=== PATIENT | female | born 1955 | race American Indian/Alaskan Native ===

== ENCOUNTER 2017-04-07 13:11 | Outpatient (CLI) | payer MEDICARE ==
--- NOTE | 2017-04-09 08:33 | Vascular Lab Report ---
LEFT UPPER EXTREMITY VENOUS DUPLEX: REASON FOR EXAM: Pain of the left upper extremity COMMENTS ON THE LEFT: Deep venous thrombosis is noted in the internal jugular, axillary, subclavian veins.. The remaining veins visualized are freely compressible without evidence of internal echogenicity. Spontaneous and phasic flow is absent proximally. COMMENTS ON THE RIGHT: The subclavian and internal jugular veins are free of thrombus. IMPRESSION: Acute deep venous thrombosis in the left upper extremity
--- NOTE | 2017-04-15 12:02 | Cat Scan Report ---
CTA CHEST INDICATION: Pain in right forearm. Lung cancer. COMPARISON: 09/20/[address] FINDINGS: Chest CTA performed following intravenous administration of 100 cc of Omnipaque 350. Rotational MIP's also obtained. Left hemidiaphragm again moderately elevated, though with increased left lower lung/base consolidation with air bronchograms as on axial series 2, images 84-140. Slight increased left pleural fluid or thickening posteroinferiorly as on axial image 126, amongst others, as well. Left hilar/suprahilar/left paramediastinal mass now larger as approximately 6.3 x 2.7 cm as on axial image 90, series 2 and approximately 8 cm in craniocaudal extent, encasing blood vessels and the airways centrally as also invading/extending into the superior mediastinum as on axial images 30-75, series 2. Subtle soft tissue hypodensity may also extend along the proximal common carotid artery and prominent stranding/haziness along the left subclavian/subpectoral neurovascular bundle on axial images 15-60, amongst others. Left upper anterior chest subcutaneous stranding also now noted, axial images 10-70. Left pectoral muscles also asymmetrically prominent/mildly larger than the right. Mild cardiomediastinal shift to the right again noted as also pericardial fluid on the left with maximum thickness of 1.8 cm, image 127, series 2. Borderline pulmonary arterial hypertension. No aortic aneurysm, dissection or suspicious pulmonary arterial filling defects, to the extent assessed. Patent airway centrally. Normal thyroid. Mild right middle lobe atelectasis or scarring again noted. Slight nonspecific distal esophageal prominence/thickening. Few subcentimeter, indeterminate left hepatic hypodensities appear stable, axial images 188-230 measuring up to 7 mm. No focal aggressive osseous lesions. CONCLUSION: 1. Interval worsening with enlargement of left hilar/suprahilar/left paramediastinal mass with mediastinal invasion and encasement of the airways and blood vessels centrally, as detailed above. Increased left basilar atelectasis and/or small pleural fluid or thickening also now noted. Left upper chest wall soft tissue changes are also new with left subclavian vein thrombosis/occlusion not excluded. Please correlate. 2. Stable moderately elevated left hemidiaphragm with mild cardiomediastinal shift to the right. Small pericardial effusion also again seen. 3. Few other findings, as above. Please note that this exam is now available for interpretation. Thank you for the opportunity to participate in this patient's care.
== END 2017-04-07 13:12 | disposition home or self-care (01) ==
LOC: CT 13:11
PROVIDERS: ATTEND Internal Medicine Hematology & Oncology
DX: M79.631 Pain in right forearm (principal); R06.02 Shortness of breath; M79.89 Other specified soft tissue disorders
CPT/HCPCS: 36415; 71275; 82565; 84520; 93971; Q9967

== ENCOUNTER 2017-08-05 09:22 | Outpatient (CLI) | payer MEDICARE ==
[2017-08-05 10:35] LABS: Blood Urea Nitrogen 18 mg/dL (7-17)
--- NOTE | 2017-08-05 13:13 | Cat Scan Report ---
CT CHEST WITH CONTRAST: 08/05/17 09:22:00 CLINICAL: Malignant neoplasm of left upper lobe bronchus or lung. Comparison: 04/07/17 and 09/20/14 CT Chest and 10/03/14 CT PET TECHNIQUE: Volumetric acquisition and 1.25 mm scan reconstructions after the uneventful intravenous injection of 100cc Omnipaque 300. Consent was obtained prior to the administration of contrast. FINDINGS: Persistent elevation of the left hemidiaphragm to the level of the main pulmonary artery. Partial atelectasis of the left upper lobe and significant decreased size of previously described left hilar mass. Mass persists as thickened medial pleura at the level of the main pulmonary artery and measures approximately 3.9 x 1.4 x 4.7 cm. Decreased size of superior mediastinal mass. Vessels are no longer encased by mass. Normal heart, aorta and pulmonary vasculature. No new lung mass or nodule. No hilar or mediastinal lymphadenopathy. No pleural effusion. Normal thyroid, trachea and esophagus. No axillary or supraclavicular lymphadenopathy. The upper abdomen is remarkable for stable benign hepatic cysts. Normal adrenal glands. The bones and soft tissues are normal. IMPRESSION: Positive response to therapy with decreased size of left upper lobe hilar mass and superior mediastinal mass. No new disease.
--- NOTE | 2017-08-05 14:27 | Cat Scan Report ---
FINAL REPORT EXAM: CT ABDOMEN PELVIS W CON HISTORY: MALIGNANT NEOPLASM OF UPPER LOBE,LEFT BRONCHUS OR LUNG TECHNIQUE: CT of the abdomen and pelvis with IV contrast. Coronal and sagittal reconstructed imaging provided. PRIORS: CT chest August 05, 2017. FINDINGS: ABDOMEN: Left upper quadrant abdominal contents extend into the thorax. Findings may be related to a elevated left hemidiaphragm based on the prior CT chest. A diaphragmatic hernia is not entirely excluded. Partially imaged right lung is grossly unremarkable. Several subcentimeter low-attenuation lesions are present within the fatty liver. No obvious enhancement. Largest lesion measures 7.9 mm in the right liver on series 3:157. Pancreatic duct is dilated measuring 3.4 cm near the head. Distinct lesion is not evident. No abnormal enhancement. Gallbladder, spleen, and adrenals are unremarkable. Kidneys: Symmetrical cortical enhancement. Subcentimeter low-density lesions in both renal cortices are too small to accurately characterize but statistically probably represent cysts. No hydronephrosis. No suspicious osseous lesions. IVC is intact. Mild aortic atherosclerotic disease. No aneurysm. No dissection. No periaortic or retroperitoneal mass or adenopathy. Hltv-qk-dwuqjlbo stool is present throughout the colon. Sigmoid diverticulosis noted. No wall thickening or inflammatory changes. Appendix is normal. Terminal ilium is unremarkable. Small bowel loops are unremarkable. No obstructive pattern. No free air. No free fluid. PELVIS: Limited CT images of the uterus are unremarkable. Bladder is unremarkable. No wall thickening. No abnormal enhancing lesions. There is no pelvic mass or adenopathy. Inguinal regions are unremarkable. Bones: Ill-defined sclerotic lesion at the right aspect of the vertebral body and bilateral posterior elements of L3 is suspicious for metastatic disease. Compression fracture is not present. No other suspicious sclerotic lesions are evident IMPRESSION: Sclerotic lesion at the L3 vertebra. Findings are suspicious for metastatic disease. Further evaluation with bone scan may be helpful clinically indicated. Elevated left hemidiaphragm. Nonspecific low-density lesions in the fatty liver. Liver protocol as CT or MRI may be helpful if clinically indicated. Probable bilateral renal cysts.
--- NOTE | 2017-08-05 14:44 | Nuclear Medicine Report ---
NUCLEAR MEDICINE WHOLE-BODY BONE SCAN: 08/05/17 CLINICAL: Lung cancer restaging. COMPARISON: 09/20/14 TECHNIQUE: 25.0-millicuries technetium 99m MDP was injected intravenously and whole body scans were obtained at 3 hours. FINDINGS: Increased uptake in the L3 vertebral body and subtle new uptake in the upper sternum when compared to the prior exam. No other suspicious findings. IMPRESSION: Greater uptake in the L3 vertebral body and in the upper sternum when compared to the 09/20/14 exam. The lumbar uptake correlates with an FDG avid sclerotic L3 lesion identified on the 10/03/[address] but there is no corresponding sternal lesion on the PET CT.
== END 2017-08-05 09:23 | disposition home or self-care (01) ==
LOC: NM 09:22
PROVIDERS: ATTEND Internal Medicine Hematology & Oncology
DX: C34.12 Malignant neoplasm of upper lobe, left bronchus or lung (principal); K44.9 Diaphragmatic hernia without obstruction or gangrene; K76.89 Other specified diseases of liver; I70.0 Atherosclerosis of aorta; K57.30 Diverticulosis of large intestine without perforation or abscess without bleeding; M89.9 Disorder of bone, unspecified; J98.6 Disorders of diaphragm; N28.1 Cyst of kidney, acquired; J98.11 Atelectasis; E78.5 Hyperlipidemia, unspecified; J06.9 Acute upper respiratory infection, unspecified; I82.622 Acute embolism and thrombosis of deep veins of left upper extremity; E53.8 Deficiency of other specified B group vitamins; M79.1 Myalgia
CPT/HCPCS: 36415; 71260; 74177; 78306; 82565; 84520; A9503; Q9967

== ENCOUNTER 2017-11-03 08:56 | Outpatient (CLI) | payer MEDICARE ==
[2017-11-03 10:33] LABS: Blood Urea Nitrogen 18 mg/dL (7-17)
--- NOTE | 2017-11-03 14:18 | Nuclear Medicine Report ---
NUCLEAR MEDICINE WHOLE-BODY BONE SCAN: 11/03/17 09:05:00 CLINICAL: Lung cancer followup. COMPARISON: 08/05/17 bone scan and 11/03/17 CT CAP TECHNIQUE: 25 millicuries technetium 99m MDP was injected intravenously and whole body scans were obtained at 3 hours. FINDINGS: Persistent but slightly decreased uptake in the L3 vertebral body at the previously identified blastic metastasis. Decreased uptake in the sternum compared with the prior exam. Increased uptake on the right at L5-S1 correlates with degenerative disc disease on the CT. IMPRESSION: Decreased uptake at L3 and in the sternum. No new suspicious uptake. Benign uptake at L5-S1.
--- NOTE | 2017-11-04 10:07 | Cat Scan Report ---
CT CHEST, ABDOMEN AND PELVIS WITHOUT AND WITH CONTRAST: 11/03/17 08:56:00 CLINICAL: Left upper lobe lung cancer followup. COMPARISON: 08/05/17 TECHNIQUE: Volumetric acquisition and 1.25 millimeter scan reconstructions without contrast and after the uneventful intravenous injection of one hundred cc of Omnipaque 300. Consent was obtained prior to the administration of the contrast. Oral contrast was also given. FINDINGS: Chest: Elevation of the left hemidiaphragm and better expansion of the remaining left lung. The previously described left hilar and pleural-based mass has decreased in size and measures 3.3 x 0.9 cm compared to 3.9 x 1.4 cm. No other pulmonary mass or nodule. Near-complete resolution of superior mediastinal mass. There is mild residual soft tissue density at the superior aspect of the aortic arch at the origin of the arch vessels. Normal aorta, heart and pulmonary arteries. Normal esophagus and trachea. No mediastinal or hilar lymphadenopathy.No axillary or supraclavicular lymphadenopathy. Abdomen: Left upper quadrant abdominal contents extend into the thorax as seen on prior exams. The liver is normal except for a few stable small benign cysts. Normal bile ducts and gallbladder. Normal stomach, duodenum, pancreas and spleen. Aortic tortuosity and mild calcification. Normal aorta and inferior vena cava. No lymphadenopathy.No ascites.Normal small bowel. Normal ascending, transverse and descending colon. Normal appendix. Pelvis: Normal urinary bladder, rectum and uterus. Normal ovaries. Normal sigmoid colon. 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 No fracture and no new bone lesions. IMPRESSION:1. Decreased size of left hilar and pleural-based chest mass. 2. Near-complete resolution of superior mediastinal soft tissue mass. 3. No new disease. 4. Stable benign hepatic cysts. 5. Stable metastasis involving L3.
== END 2017-11-03 08:57 | disposition home or self-care (01) ==
LOC: NM 08:56
PROVIDERS: ATTEND Internal Medicine Hematology & Oncology
DX: C79.51 Secondary malignant neoplasm of bone (principal); C34.12 Malignant neoplasm of upper lobe, left bronchus or lung; E78.5 Hyperlipidemia, unspecified; J06.9 Acute upper respiratory infection, unspecified; K76.89 Other specified diseases of liver; E53.8 Deficiency of other specified B group vitamins; I82.622 Acute embolism and thrombosis of deep veins of left upper extremity; J98.6 Disorders of diaphragm; M79.1 Myalgia; I70.0 Atherosclerosis of aorta; I10 Essential (primary) hypertension; J45.909 Unspecified asthma, uncomplicated
CPT/HCPCS: 36415; 71270; 74178; 78306; 82565; 84520; A9503; Q9967

== ENCOUNTER 2018-01-28 09:33 | Outpatient (CLI) | payer MEDICARE ==
[2018-01-28 10:51] LABS: Blood Urea Nitrogen 14 mg/dL (7-17)
--- NOTE | 2018-01-28 23:35 | Cat Scan Report ---
FINAL REPORT PROCEDURE: CT CHEST W CON TECHNIQUE: Computerized axial tomography of the chest was performed during the IV injection of iodinated nonionic contrast. HISTORY: MALIGNANT NEOPLASM OF UPPER LOBE COMPARISON: 11/03/2017 and 08/05/2017 TECHNICAL QUALITY: Satisfactory. FINDINGS: Atelectatic changes involving left upper and lower lobes are again identified. A pleural based medial left upper lobe mass is again noted measuring about 3.3 x 0.9 x 2.6 centimeters in AP, transverse and craniocaudal dimensions without significant interval change. There also atelectatic changes involving the right middle lobe. No new mass lesions are identified. Pleural spaces are clear. There is mild degree ill-defined left hilar soft tissue density as seen on the prior CT of 08/05/2017. There is no mediastinal lymphadenopathy is thyroid demonstrates normal size and density. Aorta is of normal caliber. There is elevation of left hemidiaphragm with shift of mediastinum to the right. There are multiple small well-defined cystic lesions of bilateral lobes of liver which are unchanged. Vertebral height is normal. IMPRESSION: Left upper lobe mass lesion is stable and unchanged with possible extension of into the left hilum. No new mass lesions.
--- NOTE | 2018-01-28 23:42 | Cat Scan Report ---
FINAL REPORT PROCEDURE: CT ABDOMEN PELVIS W CON TECHNIQUE: Computerized axial tomography of the abdomen and pelvis was performed after the IV injection of iodinated nonionic contrast. HISTORY: MALIGNANT NEOPLASM OF UPPER LOBE COMPARISON: 11/03/2017 FINDINGS: Multiple well-defined cystic lesions of bilateral lobes of liver are again identified most likely representing simple cysts. Spleen, and adrenal glands are within normal limits. Bilateral kidneys demonstrate uniform enhancement without hydronephrosis. Aorta is of normal caliber. There is no free fluid or free air. Gallbladder is unremarkable. Small bowel loops are within normal limits. Appendix is normal. Diffusely increased density of L3 vertebral body is again noted without change. IMPRESSION: Multiple cystic lesions of liver are stable most likely representing simple cysts. Sclerotic L3 vertebral body most likely representing metastatic disease is also unchanged. There are no new mass lesions or metastasis.
--- NOTE | 2018-01-29 09:13 | Nuclear Medicine Report ---
BONE SCAN: History: Malignant neoplasm of upper lobe. Findings: After injection of isotope, gamma camera imaging of the bony system was done. Correlation is made with CT abdomen pelvis with contrast performed the same day. There is mild diffuse increased uptake in the L3 vertebral body. There is sclerosis throughout the L3 vertebral body on CT consistent with metastasis. I suppose Paget's disease could also be considered. There is normal bony uptake through the remainder of the skeleton. No additional areas suspicious for metastasis or fracture. IMPRESSION: Mild increase uptake at the level of L3 consistent with a solitary bony metastasis, or less likely Paget's disease.
== END 2018-01-28 09:34 | disposition home or self-care (01) ==
LOC: NM 09:33
PROVIDERS: ATTEND Internal Medicine Hematology & Oncology
DX: C34.12 Malignant neoplasm of upper lobe, left bronchus or lung (principal); C79.51 Secondary malignant neoplasm of bone; E78.5 Hyperlipidemia, unspecified; J06.9 Acute upper respiratory infection, unspecified; M79.1 Myalgia; E53.8 Deficiency of other specified B group vitamins; D69.6 Thrombocytopenia, unspecified; K76.89 Other specified diseases of liver
CPT/HCPCS: 36415; 71260; 74177; 78306; 82565; 84520; A9503; Q9967

== ENCOUNTER 2018-06-03 09:26 | Outpatient (CLI) | payer MEDICARE ==
[2018-06-03 10:20] LABS: Blood Urea Nitrogen 15 mg/dL (7-17)
--- NOTE | 2018-06-03 13:43 | Cat Scan Report ---
CT chest, abdomen and pelvis with contrast: Left upper lobe malignancy followup. Following IV and oral contrast administration transverse images are obtained from the thoracic to the ischium with coronal and sagittal 2-D reformatted images. Comparison made to prior exam in January 2018. There is volume loss in the left chest with marked elevation of the left hemidiaphragm. There is a mass obstructing the upper lobe bronchus. It appears to have a maximum dimension of 3.3 cm which is somewhat larger than the prior exam where it measured 2.7 cm. Just superior to the mass there is a focal area of tissue density measuring 2.4 cm attached to the mediastinal contour which is unchanged and is adjacent to an area of atelectasis which also remain stable. There is atelectasis also noted around the lower lobe bronchus which remains unchanged. There is a small area of focal atelectasis noted in the right middle lobe attached and mediastinal contour which also remains unchanged. A stable 16 mm lymph node is present anterior to the pretty. No other significant findings. No bone lesion is noted. Images of the liver again note multiple low attenuation circumscribed masses in the right and left lobes of the liver consistent with cysts. Stable small left renal cyst. The abdominal and retroperitoneal structures are not otherwise remarkable. No periaortic or mesenteric adenopathy noted. Diffusely sclerotic L3 body stable since prior exams. Impression: 1. The left upper lobe mass measures slightly larger than on prior 2 exams. 2. Stable areas of bilateral atelectasis. 3. Stable sclerotic L3 body. No new bone lesions identified.
--- NOTE | 2018-06-03 14:09 | Nuclear Medicine Report ---
Whole body bone scan: Left upper lobe malignancy. Comparison to prior exam on January 28, 2018. Following injection of radionuclide whole-body imaging is obtained at 3 hours. There is normal bone to background activity with activity identified in the urinary tract. There is intense focal activity throughout the L3 body. No other areas of abnormal increased or decreased activity are identified. This is unchanged compared to the prior exam. Impression: Stable L3 increased activity. No new areas of abnormal activity. Probable single metastasis as discussed on previous exams.
== END 2018-06-03 09:27 | disposition home or self-care (01) ==
LOC: NM 09:26
PROVIDERS: ATTEND Internal Medicine Hematology & Oncology
DX: C34.12 Malignant neoplasm of upper lobe, left bronchus or lung (principal); J98.11 Atelectasis
CPT/HCPCS: 36415; 71260; 74177; 78306; 82565; 84520; A9503; Q9967

== ENCOUNTER 2019-02-08 12:42 | Outpatient (CLI) | payer MEDICARE ==
--- NOTE | 2019-02-08 13:57 | XRay Report ---
Bilateral TIBIA/FIBULA: History: Pain due to recent fall AP and lateral views of the bilateral tibia/fibula demonstrate normal mineralization and contours for this patient's age. No destructive changes are noted and the adjacent soft tissues are normal. IMPRESSION: Unremarkable bilateral tibia/fibula.
--- NOTE | 2019-02-08 15:58 | Vascular Lab Report ---
PROCEDURE: VL VENOUS DUPLEX LE BILAT TECHNIQUE: Duplex Doppler sonography of the BILATERAL lower extremities. [place] scale imaging with and without compression, spectral waveform analysis with and without augmentation, and color flow Dopple r were employed. 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 This document is electronically signed by Tasia Magdaleno MD., February 08 2019 03:56:04 PM ET
== END 2019-02-08 12:43 | disposition home or self-care (01) ==
LOC: VAS 12:42
PROVIDERS: ATTEND Internal Medicine Hematology & Oncology
DX: I83.813 Varicose veins of bilateral lower extremities with pain (principal)
CPT/HCPCS: 93970

== ENCOUNTER 2019-03-26 18:10 | Emergency (ER) | payer MEDICARE ==
[2019-03-26] MEDS ORDERED: ASPIRIN PO ONE (18:23)
--- NOTE | 2019-03-26 18:24 | Event Note ---
ED Screening Note Date of service: 03/26/19 Time: 18:21 ED Screening Note: This is a 63 y.o. F. that presents to the ER with chest pain radiating to back since this morning. PMH stage 4 lung cancer, loss of hearing on left ear Oncologist Dr. Bahena, Instrument Assembler Dr. Ayoub Patient took oxycodone with worsening symptoms. This initial assessment/diagnostic orders/clinical plan/treatment(s) is/are subject to change based on patients health status, clinical progression and re- assessment by fellow clinical providers in the ED. Further treatment and workup at subsequent clinical providers discretion. Patient/guardian urged not to elope from the ED as their condition may be serious if not clinically assessed and managed. Initial orders include: Labs, EKG, CXR
--- NOTE | 2019-03-26 19:20 | XRay Report ---
CHEST 2 VIEWS INDICATION / CLINICAL INFORMATION: MAIN: Chest Pain started this morning. COMPARISON: CT chest 08/26/2018 report. Images not available FINDINGS: SUPPORT DEVICES: Right internal jugular Port-A-Cath has tip in SVC. HEART / MEDIASTINUM: No significant abnormality. LUNGS / PLEURA: Marked chronic elevation of left hemidiaphragm with parenchymal masslike density with in the medial aspect of left lung field. No pneumothorax. ADDITIONAL FINDINGS: No significant additional findings. IMPRESSION: 1. Airspace disease or parenchymal masslike density within the central aspect of left lung. Recommend chest CT with contrast. 2. Marked chronic elevation of left hemidiaphragm Signer Name: Derrick Mays MD Signed: 03/26/2019 7:16 PM Workstation Name: [id number]
[2019-03-26 19:28] LABS: Hematocrit 29.7 % (30.3-42.9); Hemoglobin 9.4 gm/dl (10.1-14.3); Mean Corpuscular HGB Conc 32 % (30-34); Mean Corpuscular Volume 99 fl (79-97); Platelet Count 179 K/mm3 (140-440); Red Blood Count 3.02 M/mm3 (3.65-5.03)
[2019-03-26 19:30] LABS: Red Cell Distribution Width 23.9 % (13.2-15.2)
[2019-03-26 19:58] LABS: BUN/Creatinine Ratio 18; Blood Urea Nitrogen 24 mg/dL (7-17); Calcium 9.5 mg/dL (8.4-10.2); Hemolysis Index 0
--- NOTE | 2019-03-26 20:11 | Emergency Department Report ---
ED Chest Pain HPI - General Chief Complaint: Chest Pain Stated Complaint: CHEST PAIN Time Seen by Provider: 03/26/19 18:20 Source: patient Mode of arrival: Ambulatory Limitations: No Limitations - History of Present Illness Initial Comments: Patient is 63 years old female with history of stage IV lung cancer. Patient presented to the ER complaining of left sided chest pain that radiates to left back. Patient stated that pain is sharp in nature and increases with deep inspiration. Patient denied any fever or chills. Patient also denied any nausea or vomiting. MD Complaint: chest pain -: This morning Onset: during rest Pain Location: left chest Pain Radiation: back Severity: moderate Severity scale (0 -10): 4 Quality: sharp Consistency: constant Improves With: nothing Worsens With: inspiration - Related Data Allergies Allergy/AdvReac Type Severity Reaction Status Date / Time erythromycin base AdvReac Hives Unverified 09/07/13 15:25 [Erythromycin Base] Heart Score - HEART Score History: Moderately suspicious EKG: Non-specific Age: 45-65 Risk factors: 1-2 risk factors Troponin: < normal limit HEART Score: 4 - Critical Actions Critical Actions: 4-6 pts:12-16.6% risk of adverse cardiac event. Should be admitted ED Review of Systems ROS: Stated complaint: CHEST PAIN Other details as noted in HPI Comment: All other systems reviewed and negative Constitutional: denies: chills, fever Respiratory: shortness of breath. denies: cough, SOB with exertion, SOB at res t, wheezing Cardiovascular: chest pain. denies: palpitations, dyspnea on exertion, orthopnea Gastrointestinal: denies: abdominal pain, nausea, vomiting, diarrhea, constipation, hematemesis, melena, hematochezia Musculoskeletal: denies: back pain Neurological: denies: headache, weakness, numbness, paresthesias, confusion, abnormal gait ED Past Medical Hx - Past Medical History Additional medical history: stage 4 lung CA- chemo, left ear deafness, anemia with transfusion - Surgical History Past Surgical History?: Yes Additional Surgical History: right chestwall infusiport - Social History Smoking Status: Never Smoker Substance Use Type: None ED Physical Exam - General Limitations: No Limitations General appearance: alert, in no apparent distress - Head Head exam: Present: atraumatic, normocephalic, normal inspection - Eye Eye exam: Present: normal appearance, PERRL - ENT ENT exam: Present: normal exam, normal orophraynx, mucous membranes moist - Neck Neck exam: Present: normal inspection, full ROM. Absent: tenderness, meningismus, lymphadenopathy, thyromegaly - Respiratory Respiratory exam: Present: normal lung sounds bilaterally - Cardiovascular Cardiovascular Exam: Present: regular rate, normal rhythm, normal heart sounds - GI/Abdominal GI/Abdominal exam: Present: soft, normal bowel sounds. Absent: distended, tenderness, guarding, rebound, rigid, organomegaly, mass, bruit, pulsatile mass - Extremities Exam Extremities exam: Present: normal inspection, full ROM, normal capillary refill - Back Exam Back exam: Present: normal inspection, full ROM. Absent: CVA tenderness (R), CVA tenderness (L), muscle spasm, paraspinal tenderness, vertebral tenderness - Neurological Exam Neurological exam: Present: alert, oriented X3, CN II-XII intact, reflexes normal - Psychiatric Psychiatric exam: Present: normal mood - Skin Skin exam: Present: warm, intact, normal color ED Course Vital Signs 03/26/19 03/26/19 03/26/19 18:21 19:58 20:00 Temperature 98.1 F Pulse Rate 86 80 81 Respiratory 18 21 22 Rate Blood Pressure 102/65 94/56 O2 Sat by Pulse 99 82 L Oximetry 03/26/19 20:32 Temperature Pulse Rate Respiratory 18 Rate Blood Pressure O2 Sat by Pulse 98 Oximetry ED Medical Decision Making - Lab Data Result diagrams: 03/26/19 19:11 03/26/19 19:11 - EKG Data -: EKG Interpreted by De EKG shows normal: sinus rhythm Rate: normal - EKG Data Interpretation: no acute changes - Radiology Data Radiology results: report reviewed - Medical Decision Making Patient is 63 years old female with history of stage IV lung cancer. Patient presented to the ER complaining of left sided chest pain that radiates to left back. Patient stated that pain is sharp in nature and increases with deep inspiration. Patient denied any fever or chills. Patient also denied any nausea or vomiting. EKG showed no ST elevation. Chest x-ray showed a possible loss which is consistent with patient's history of breast cancer. One set of troponin is negative so far. Patient had a CTA chest with no evidence of pulmonary embolism. I discussed the patient is Dr. Sophia Ramírez, she agreed to admit the patient to medical service for further management. Critical care attestation.: If time is entered above; I have spent that time in minutes in the direct care of this critically ill patient, excluding procedure time. ED Disposition Clinical Impression: Chest pain Disposition: OP ADMIT IP TO THIS HOSP Is pt being admited?: Yes Condition: Stable Instructions: Chest Pain (ED) Referrals: BERENICE STALLWORTH MD [Referring] - 3-5 Days
[2019-03-26 20:24] LABS: Anisocytosis 2+; Basophils % (Manual) 0 % (0.0-1.8); Total Cells Counted 100
--- NOTE | 2019-03-26 21:04 | Cat Scan Report ---
CTA CHEST WITH IV CONTRAST INDICATION: CHEST PAIN WITH H/O DVT, H/O LUNG CA. TECHNIQUE: Axial CT images were obtained through the chest after injection of IV contrast. 3 plane MIP reconstru ctions were produced. All CT scans at this location are performed using CT dose reduction for ALARA b y means of automated exposure control. COMPARISON: CT chest 01/07/2019 FINDINGS: Right internal jugular Port-A-Cath has tip in SVC PULMONARY ARTERIES: No pulmonary emboli. THORACIC AORTA: No acute abnormality. HEART: Normal. CORONARY ARTERIES: No significant calcification. PLEURA: Small left pleural effusion is again noted. No pneumothorax. LYMPH NODES: No significant adenopathy. LUNGS: There is probable radiation pneumonitis within the central aspect of the left lung, unchanged. No recurrent/residual mass is noted. ADDITIONAL FINDINGS: None. UPPER ABDOMEN: 2 simple hepatic cysts are present. Visualized portions of upper abdomen including bot h adrenals otherwise appear within normal limits. SKELETAL STRUCTURES: No significant osseous abnormality. IMPRESSION: 1. No CT evidence for pulmonary embolism. 2. 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 Small stable left pleural effusion. Signer Name: Derrick Mays MD Signed: 03/26/2019 9:00 PM Workstation Name: [id number]
[2019-03-26 22:56] VITALS: BP 118/63
== END 2019-03-26 22:56 | disposition left against medical advice (07) ==
LOC: ED 18:10
DX: R07.89 Other chest pain (principal); R06.02 Shortness of breath; Z86.2 Personal history of diseases of the blood and blood-forming organs and certain disorders involving the immune mechanism; Z85.3 Personal history of malignant neoplasm of breast; Z88.1 Allergy status to other antibiotic agents
CPT/HCPCS: 36415; 71046; 71275; 80048; 84484; 85007; 85025; 93005; 93010; 99284; Q9967

== ENCOUNTER 2019-09-15 16:07 | Inpatient (IN) | payer MEDICARE ==
--- NOTE | 2019-09-15 18:07 | XRay Report ---
CHEST 1 VIEW INDICATION / CLINICAL INFORMATION: lung ca. COMPARISON: 03/26/2019 FINDINGS: SUPPORT DEVICES: Port-A-Cath catheter tip projects the level the superior vena cava. HEART / MEDIASTINUM: There is prominence of the cardiac silhouette LUNGS / PLEURA: Parenchymal opacity in the central left lung is unchanged from previous No pneumothor ax. There is a left pleural effusion which is small in size. ADDITIONAL FINDINGS: There is elevation of the left hemidiaphragm. IMPRESSION: 1. There is a small left pleural effusion. Parenchymal opacity in the central left chest appears gayle lar to previous imaging. There is elevation of left hemidiaphragm. Signer Name: Yunior Mcknight MD Signed: 09/15/2019 6:02 PM Workstation Name: [id number]
[2019-09-15 18:34] LABS: Hematocrit 21.5 % (30.3-42.9); Hemoglobin 6.9 gm/dl (10.1-14.3); Mean Corpuscular HGB Conc 32 % (30-34); Mean Corpuscular Volume 95 fl (79-97); Red Blood Count 2.26 M/mm3 (3.65-5.03)
[2019-09-15 18:38] LABS: Platelet Count 12 K/mm3 (140-440); Red Cell Distribution Width 20.6 % (13.2-15.2)
[2019-09-15 18:52] LABS: Albumin 3.7 g/dL (3.9-5); Calcium 9.8 mg/dL (8.4-10.2)
--- NOTE | 2019-09-15 19:22 | Cat Scan Report ---
CT BRAIN: 09/15/2019 INDICATION / CLINICAL INFORMATION: dizziness. COMPARISON: None available. FINDINGS: BRAIN/INTRACRANIAL STRUCTURES: Unenhanced CT images of the brain demonstrate no evidence of acute int racranial abnormality. Ventricles and sulci are prominent in size, consistent with pronounced diffuse cerebral atrophy. Extensive chronic microangiopathic white matter hypoattenuation is present throughout the cerebral he mispheric white matter. There is evidence of old lacunar changes in the basal ganglia and thalami bilaterally. There is no evidence of acute large vessel territory ischemic injury, hemorrhage, or mass. There are no abnormal extra-axial fluid collections. EXTRACRANIAL STRUCTURES: Unremarkable. IMPRESSION: No acute abnormality. Pronounced diffuse cerebral atrophy. All CT scans at this location are performed using dose reduction to ALARA by means of automated expos ure control. Signer Name: Dm Do MD Signed: 09/15/2019 7:18 PM Workstation Name: [id number]
[2019-09-15 19:38] LABS: Basophils % (Manual) 0 % (0.0-1.8); Total Cells Counted 100
[2019-09-15 19:40] LABS: Anisocytosis 2+; Macrocytosis 1+; Poikilocytosis 1+; Tear Drop Cells Rare
[2019-09-15 19:41] LABS: Hypochromasia 2+; Stomatocytes Few
[2019-09-15 19:42] LABS: Platelet Estimate Consistent w Auto
--- NOTE | 2019-09-15 20:22 | Emergency Department Report ---
ED General Adult HPI - General Chief complaint: Dizziness Stated complaint: LOW BLOOD PRESSURE, 68/52 Time Seen by Provider: 09/15/19 16:37 Source: patient Mode of arrival: Wheelchair Limitations: No Limitations - History of Present Illness Initial comments: The patient presents to the emergency department with a chief complaint of dizziness. Patient has a history of non-small cell carcinoma of the lungs and is currently receiving chemotherapy. Patient states that for the last week or so upon standing she becomes very dizzy. She was sent by cardiologists office because they have decreased her atenolol without improvement of her symptoms. She was noted to have a low blood pressure with him upon visitation. Patient denies chest pain, stress breath, headache. -: Gradual Severity scale (0 -10): 0 Consistency: constant Improves with: none Worsens with: none Associated Symptoms: denies other symptoms Treatments Prior to Arrival: none - Related Data Allergies Allergy/AdvReac Type Severity Reaction Status Date / Time erythromycin base AdvReac Hives Verified 03/26/19 22:10 [Erythromycin Base] ED Review of Systems ROS: Stated complaint: LOW BLOOD PRESSURE, 68/52 Other details as noted in HPI Constitutional: denies: chills, fever Eyes: denies: eye pain, eye discharge, vision change ENT: denies: ear pain, throat pain Respiratory: denies: cough, shortness of breath, wheezing Cardiovascular: denies: chest pain, palpitations Endocrine: no symptoms reported Gastrointestinal: denies: abdominal pain, nausea, diarrhea Genitourinary: denies: urgency, dysuria, discharge Musculoskeletal: denies: back pain, joint swelling, arthralgia Skin: denies: rash, lesions Neurological: denies: headache, weakness, paresthesias Psychiatric: denies: anxiety, depression Hematological/Lymphatic: denies: easy bleeding, easy bruising ED Past Medical Hx - Past Medical History Previous Medical History?: Yes Additional medical history: stage 4 lung CA- chemo, left ear deafness, anemia with transfusion - Surgical History Past Surgical History?: Yes Additional Surgical History: right chestwall infusiport - Social History Smoking Status: Never Smoker Substance Use Type: None ED Physical Exam - General Limitations: No Limitations General appearance: alert, in no apparent distress - Head Head exam: Present: atraumatic, normocephalic - Eye Eye exam: Present: normal appearance - ENT ENT exam: Present: mucous membranes dry - Neck Neck exam: Present: normal inspection - Respiratory Respiratory exam: Present: normal lung sounds bilaterally. Absent: respiratory distress - Cardiovascular Cardiovascular Exam: Present: normal rhythm, tachycardia. Absent: systolic murmur, diastolic murmur, rubs, gallop - GI/Abdominal GI/Abdominal exam: Present: soft, normal bowel sounds - Extremities Exam Extremities exam: Present: normal inspection - Back Exam Back exam: Present: normal inspection - Neurological Exam Neurological exam: Present: alert, oriented X3, CN II-XII intact. Absent: motor sensory deficit - Psychiatric Psychiatric exam: Present: normal affect, normal mood - Skin Skin exam: Present: warm, dry, intact, normal color. Absent: rash ED Course Vital Signs 09/15/19 09/15/19 09/15/19 16:11 16:50 17:00 Temperature 97.5 F L Pulse Rate 102 H 80 78 Respiratory 16 22 19 Rate Blood Pressure 85/57 Blood Pressure [Left] O2 Sat by Pulse 97 100 100 Oximetry 09/15/19 09/15/19 09/15/19 17:16 17:30 17:46 Temperature Pulse Rate 76 80 82 Respiratory 19 23 16 Rate Blood Pressure 107/58 Blood Pressure [Left] O2 Sat by Pulse 100 100 100 Oximetry 09/15/19 09/15/19 09/15/19 18:00 18:11 18:16 Temperature Pulse Rate 77 75 Respiratory 20 18 21 Rate Blood Pressure 107/58 107/58 Blood Pressure [Left] O2 Sat by Pulse 97 Oximetry 09/15/19 09/15/19 09/15/19 18:30 18:54 19:00 Temperature Pulse Rate 76 75 Respiratory 22 22 Rate Blood Pressure 107/58 107/58 94/61 Blood Pressure [Left] O2 Sat by Pulse Oximetry 09/15/19 09/15/19 09/15/19 19:15 19:30 19:46 Temperature 97.8 F Pulse Rate 76 74 78 Respiratory 14 17 11 L Rate Blood Pressure 106/59 95/53 103/54 Blood Pressure 103/54 [Left] O2 Sat by Pulse 100 99 100 Oximetry 09/15/19 09/15/19 09/15/19 20:00 20:15 20:30 Temperature Pulse Rate 75 77 77 Respiratory 14 20 13 Rate Blood Pressure 108/53 98/53 90/45 Blood Pressure [Left] O2 Sat by Pulse 99 100 100 Oximetry 09/15/19 09/15/19 20:45 21:00 Temperature Pulse Rate 84 80 Respiratory 21 13 Rate Blood Pressure 101/58 103/71 Blood Pressure [Left] O2 Sat by Pulse 93 Oximetry ED Medical Decision Making - Lab Data Result diagrams: 09/15/19 18:03 09/15/19 18:03 Lab Results 09/15/19 09/15/19 Range/Units 18:03 18:03 WBC 0.9 L* (4.5-11.0) K/mm3 RBC 2.26 L (3.65-5.03) M/mm3 Hgb 6.9 L (10.1-14.3) gm/dl Hct 21.5 L (30.3-42.9) % MCV 95 (79-97) fl MCH 31 (28-32) pg MCHC 32 (30-34) % RDW 20.6 H (13.2-15.2) % Plt Count 12 L* (140-440) K/mm3 [place] % (Auto) [employer] Specialist Add Manual Diff Complete Total Counted 100 Seg Neutrophils % [employer]ist Seg Neuts % (Manual) 22.0 L (40.0-70.0) % Band Neutrophils % 0 % Lymphocytes % (Manual) 58.0 H (13.4-35.0) % Reactive Lymphs % (Man) 0 % Monocytes % (Manual) 16.0 H (0.0-7.3) % Eosinophils % (Manual) 3.0 (0.0-4.3) % Basophils % (Manual) 0 (0.0-1.8) % Metamyelocytes % 1.0 % Myelocytes % 0 % Promyelocytes % 0 % Blast Cells % 0 % Nucleated RBC % 1.0 H (0.0-0.9) % Seg Neutrophils # Man 0.2 L (1.8-7.7) K/mm3 Band Neutrophils # 0.0 K/mm3 Lymphocytes # (Manual) 0.5 L (1.2-5.4) K/mm3 Abs React Lymphs (Man) 0.0 K/mm3 Monocytes # (Manual) 0.1 (0.0-0.8) K/mm3 Eosinophils # (Manual) 0.0 (0.0-0.4) K/mm3 Basophils # (Manual) 0.0 (0.0-0.1) K/mm3 Metamyelocytes # 0.0 K/mm3 Myelocytes # 0.0 K/mm3 Promyelocytes # 0.0 K/mm3 Blast Cells # 0.0 K/mm3 WBC Morphology Not Reportable Hypersegmented Neuts Not Reportable Hyposegmented Neuts Not Reportable Hypogranular Neuts Not Reportable Smudge Cells Not Reportable Toxic Granulation Not Reportable Toxic Vacuolation Not Reportable Dohle Bodies Not Reportable Pelger-Huet Anomaly Not Reportable Bipin Rods Not Reportable Platelet Estimate Consistent w auto Clumped Platelets Not Reportable Plt Clumps, EDTA Not Reportable Large Platelets Not Reportable Giant Platelets Not Reportable Platelet Satelliting Not Reportable Plt Morphology Comment Not Reportable RBC Morphology Not Reportable Dimorphic RBCs Not Reportable Polychromasia Not Reportable Hypochromasia 2+ Poikilocytosis 1+ Anisocytosis 2+ Microcytosis 1+ Macrocytosis 1+ Spherocytes Not Reportable Pappenheimer Bodies Not Reportable Sickle Cells Not Reportable Target Cells Not Reportable Tear Drop Cells Rare Ovalocytes Not Reportable Stomatocytes Few Helmet Cells Not Reportable [place] Bodies Not Reportable [place] Rings Not Reportable [place] Cells Not Reportable Bite Cells Not Reportable Crenated Cell Not Reportable Elliptocytes Few Acanthocytes (Spur) Not Reportable Rouleaux Not Reportable Hemoglobin C Crystals Not Reportable Schistocytes Not Reportable Malaria parasites Not Reportable Roverto Bodies Not Reportable Hem Pathologist Commnt No Sodium 144 (137-145) mmol/L Potassium 3.6 (3.6-5.0) mmol/L Chloride 103.9 (98-107) mmol/L Carbon Dioxide 25 (22-30) mmol/L Anion Gap 19 mmol/L BUN 30 H (7-17) mg/dL Creatinine 1.6 H (0.7-1.2) mg/dL Estimated GFR 39 ml/min BUN/Creatinine Ratio 19 % Glucose 100 (65-100) mg/dL Calcium 9.8 (8.4-10.2) mg/dL Total Bilirubin 0.30 (0.1-1.2) mg/dL AST 46 H (5-40) units/L ALT 26 (7-56) units/L Alkaline Phosphatase 91 (35-129) units/L Total Protein 7.3 (6.3-8.2) g/dL Albumin 3.7 L (3.9-5) g/dL Albumin/Globulin Ratio 1.0 % - EKG Data -: EKG Interpreted by Me EKG shows normal: sinus rhythm Rate: normal - Radiology Data Radiology results: report reviewed - Medical Decision Making Orthostatic blood pressures show a supine BP of 107/58 and blood pressure standing of 76/46 Patient received 2 units of packed RBCs Thrombocytopenia will be discussed with oncology Patient will be admitted CT of the head was obtained due to the patient complaining of dizziness and to evaluate for metastatic disease which could be the cause of her symptomology Critical Care Time: Yes Critical care time in (mins) excluding proc time.: 45 Critical care attestation.: If time is entered above; I have spent that time in minutes in the direct care of this critically ill patient, excluding procedure time. ED Disposition Clinical Impression: Orthostasis, Thrombocytopenia, Anemia requiring transfusions, Dizziness Disposition: DC-01 TO HOME OR SELFCARE Is pt being admited?: Yes Does the pt Need Aspirin: No Condition: Fair Referrals: BERENICE STALLWORTH MD [Referring] - 3-5 Days
[2019-09-15] MEDS ORDERED: SODIUM CHLORIDE 0.9% 500 ML 500 ML IV ONE (21:35)
[2019-09-15] MEDS ORDERED: SODIUM CHLORIDE 0.9% 1000 ML 1,000 ML IV ONE (21:35)
[2019-09-15] MEDS ORDERED: MAGNESIUM HYDROXIDE (MOM) ORAL LIQD UDC PO PRN (22:18)
[2019-09-15] MEDS ORDERED: ONDANSETRON 4 MG/2 ML INJ IV PRN (22:18)
--- NOTE | 2019-09-15 22:42 | History and Physical Report ---
History of Present Illness Date of examination: 09/15/19 Date of admission: 09/15/19 21:39 Chief complaint: 09/15/2019 History of present illness: 64-year-old female with known history of stage IV metastatic lung cancer on chemotherapy who presents to the emergency room today complaining of dizziness especially while standing. This has been going on for about 1 week. She was at the front office associate office recently and had atenolol dose decreased without any significant improvement in dizziness. She denies any chest pain, denies shortness of breath, no headache. Patient also indicates that she just got over an episode of nosebleeding. She denies any trauma to the head or nose. Upon evaluation in the emergency room patient was found to be orthostatic, hemoglobin was also found to be low at 6.9 and platelet was also low at 12,000. She has been typed and crossmatched for blood transfusion. Past History Past Medical History: hypertension, other (stage 4 lung ca., left ear deafness) Past Surgical History: Other (Right chest wall port placement,[place]. tubal ligation) Social history: no significant social history Family history: no significant family history Medications and Allergies Allergies Allergy/AdvReac Type Severity Reaction Status Date / Time erythromycin base AdvReac Hives Verified 03/26/19 22:10 [Erythromycin Base] Home Medications Medication Instructions Recorded Confirmed Last Taken Type atenoloL [Tenormin] 09/16/19 09/15/19 08:00 History 12.5 Active Meds: Active Medications Acetaminophen (Tylenol) 650 mg PO Q4H PRN PRN Reason: Pain MILD(1-3)/Fever >100.5/STUBBS Magnesium Hydroxide (Milk Of Magnesia) 30 ml PO Q4H PRN PRN Reason: Constipation Ondansetron HCl (Zofran) 4 mg IV Q8H PRN PRN Reason: Nausea And Vomiting Sodium Chloride (Sodium Chloride Flush Syringe 10 Ml) 10 ml IV BID JESSICA Sodium Chloride (Sodium Chloride Flush Syringe 10 Ml) 10 ml IV PRN PRN PRN Reason: LINE FLUSH Review of Systems Constitutional: no weight loss, no weight gain, no fever, no chills, no fatigue, no weakness Ears, nose, mouth and throat: epistaxis Cardiovascular: lightheadedness, shortness of breath, no chest pain, no palpitations Respiratory: no cough, no hemoptysis Gastrointestinal: no nausea, no vomiting, no diarrhea Musculoskeletal: no neck pain, no low back pain Integumentary: no rash, no pruritis Neurological: no syncope, no headaches, no change in speech, no change in men tation Exam - Constitutional Vitals: Temp Pulse Resp BP Pulse Ox 98.4 F 83 20 101/48 100 09/15/19 22:15 09/15/19 22:15 09/15/19 22:15 09/15/19 22:15 09/15/19 22:15 General appearance: Present: no acute distress, well-nourished - EENT Eyes: Present: PERRL, EOM intact ENT: hearing intact, clear oral mucosa, dentition normal - Neck Neck: Present: supple, normal ROM - Respiratory Respiratory effort: normal Respiratory: bilateral: CTA - Cardiovascular Rhythm: regular Heart Sounds: Present: S1 & S2 - Extremities Extremities: no ischemia, No edema, Full ROM Peripheral Pulses: within normal limits - Abdominal General gastrointestinal: Present: soft, non-tender, non-distended, normal bowel sounds - Integumentary Integumentary: Present: clear, warm, dry - Musculoskeletal Musculoskeletal: strength equal bilaterally - Psychiatric Psychiatric: appropriate mood/affect, intact judgment & insight, cooperative - Neurologic Neurologic: CNII-XII intact, moves all extremities Results - Labs CBC & Chem 7: 09/15/19 18:03 09/15/19 18:03 Labs: Abnormal lab results 09/15/19 09/15/19 Range/Units 18:03 18:03 WBC 0.9 L* (4.5-11.0) K/mm3 RBC 2.26 L (3.65-5.03) M/mm3 Hgb 6.9 L (10.1-14.3) gm/dl Hct 21.5 L (30.3-42.9) % RDW 20.6 H (13.2-15.2) % Plt Count 12 L* (140-440) K/mm3 Seg Neuts % (Manual) 22.0 L (40.0-70.0) % Lymphocytes % (Manual) 58.0 H (13.4-35.0) % Monocytes % (Manual) 16.0 H (0.0-7.3) % Nucleated RBC % 1.0 H (0.0-0.9) % Seg Neutrophils # Man 0.2 L (1.8-7.7) K/mm3 Lymphocytes # (Manual) 0.5 L (1.2-5.4) K/mm3 BUN 30 H (7-17) mg/dL Creatinine 1.6 H (0.7-1.2) mg/dL AST 46 H (5-40) units/L Albumin 3.7 L (3.9-5) g/dL Assessment and Plan - Patient Problems (1) Anemia requiring transfusions Current Visit: Yes Status: Acute Plan to address problem: Patient has been typed and crossmatched for blood transfusion. Will monitor CBC. (2) Orthostasis Current Visit: Yes Status: Acute Plan to address problem: Possibly secondary to the beta-jose d and or anemia. We will continue to monitor vital signs. (3) Thrombocytopenia Current Visit: Yes Status: Acute Plan to address problem: We will monitor CBC. Patient may require hematology evaluation and recommen dation. (4) Stage 4 lung cancer Current Visit: Yes Status: Acute Plan to address problem: Patient is on chemotherapy. (5) DVT prophylaxis Current Visit: Yes Status: Acute Plan to address problem: Patient currently on sequential compression device. (6) Full code status Current Visit: Yes Status: Acute
--- NOTE | 2019-09-16 07:51 | Progress Note ---
Assessment and Plan Assessment and plan: 64-year-old woman who presents to the hospital with dizziness. Has a known history of non-small cell carcinoma of the lung currently receiving chemotherapy. She has been complaining of dizziness upon standing for the last week or so. 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 Chest x-ray today is a small left pleural effusion. Parenchymal opacity in the central left chest appears similar to previous imaging. There is elevation of the left diaphragm. CT head no acute findings Labs show severe neutropenia and thrombocytopenia, pancytopenia, creatinine is 1.6 which is a touch worse than previous. UTI? few Wbc in urine, given neutropenia, rx w abx, while ucx pending Dizziness/hypotension/dehydration BP meds on hold, IV fluids Pancytopenia Anemia requiring transfusions Patient has a platelet count of 12 and has been having nosebleeding, would likely benefit from Neupogen or Neulasta, hematology oncology consulted sp 2 unit PRBC, start 1 unit platelets and Neupogen stage IV non-small cell cancer of the lung. Continue outpatient management when improved. Acute on chronic kidney disease stage III Likely due to vasomotor nephropathy, continue IV fluids DVT prophylaxis SCDs given thrombocytopenia and active bleeding. History Interval history: Nosebleeding has resolved Review of systems Constitutional: No fevers, no malaise, no joint pains CVS: No chest pain, no orthopnea, no pedal edema GI: No abdominal pain, no diarrhea, no vomiting, no constipation Respiratory: , no wheezing, no coughing Hospitalist Physical - Physical exam Narrative exam: General.: Appears well, no distress, nontoxic HEENT: Moist mucous membranes, extraocular muscles intact, no lymphadenopathy Neck: supple Cardiac: S1-S2 heard Lungs: clear to auscultation bilaterally Abdomen: soft , nontender, nondistended, bowel sounds positive Extremities: no edema clubbing or cyanosis Skin: no rash or lesions Neurologic: no gross focal deficits Psych: calm, and cooperative - Constitutional Vitals: Temp Pulse Resp BP Pulse Ox 98.0 F 74 18 110/61 98 09/16/19 07:12 09/16/19 07:12 09/16/19 07:12 09/16/19 07:12 09/16/19 07:12 General appearance: Present: no acute distress, well-nourished Results - Labs CBC & Chem 7: 09/15/19 18:03 09/15/19 18:03 Labs: Laboratory Last Values WBC 0.9 K/mm3 (4.5-11.0) L* 09/15/19 18:03 RBC 2.26 M/mm3 (3.65-5.03) L 09/15/19 18:03 Hgb 6.9 gm/dl (10.1-14.3) L 09/15/19 18:03 Hct 21.5 % (30.3-42.9) L 09/15/19 18:03 MCV 95 fl (79-97) 09/15/19 18:03 MCH 31 pg (28-32) 09/15/19 18:03 MCHC 32 % (30-34) 09/15/19 18:03 RDW 20.6 % (13.2-15.2) H 09/15/19 18:03 Plt Count 12 K/mm3 (140-440) L* 09/15/19 18:03 [place] % (Auto) Doubling Machine Operator 09/15/19 18:03 Add Manual Diff Complete 09/15/19 18:03 Total Counted 100 09/15/19 18:03 Seg Neutrophils % Doubling Machine Operator 09/15/19 18:03 Seg Neuts % (Manual) 22.0 % (40.0-70.0) L 09/15/19 18:03 Band Neutrophils % 0 % 09/15/19 18:03 Lymphocytes % (Manual) 58.0 % (13.4-35.0) H 09/15/19 18:03 Reactive Lymphs % (Man) 0 % 09/15/19 18:03 Monocytes % (Manual) 16.0 % (0.0-7.3) H 09/15/19 18:03 Eosinophils % (Manual) 3.0 % (0.0-4.3) 09/15/19 18:03 Basophils % (Manual) 0 % (0.0-1.8) 09/15/19 18:03 Metamyelocytes % 1.0 % 09/15/19 18:03 Myelocytes % 0 % 09/15/19 18:03 Promyelocytes % 0 % 09/15/19 18:03 Blast Cells % 0 % 09/15/19 18:03 Nucleated RBC % 1.0 % (0.0-0.9) H 09/15/19 18:03 Seg Neutrophils # Man 0.2 K/mm3 (1.8-7.7) L 09/15/19 18:03 Band Neutrophils # 0.0 K/mm3 09/15/19 18:03 Lymphocytes # (Manual) 0.5 K/mm3 (1.2-5.4) L 09/15/19 18:03 Abs React Lymphs (Man) 0.0 K/mm3 09/15/19 18:03 Monocytes # (Manual) 0.1 K/mm3 (0.0-0.8) 09/15/19 18:03 Eosinophils # (Manual) 0.0 K/mm3 (0.0-0.4) 09/15/19 18:03 Basophils # (Manual) 0.0 K/mm3 (0.0-0.1) 09/15/19 18:03 Metamyelocytes # 0.0 K/mm3 09/15/19 18:03 Myelocytes # 0.0 K/mm3 09/15/19 18:03 Promyelocytes # 0.0 K/mm3 09/15/19 18:03 Blast Cells # 0.0 K/mm3 09/15/19 18:03 WBC Morphology Not Reportable 09/15/19 18:03 Hypersegmented Neuts Not Reportable 09/15/19 18:03 Hyposegmented Neuts Not Reportable 09/15/19 18:03 Hypogranular Neuts Not Reportable 09/15/19 18:03 Smudge Cells Not Reportable 09/15/19 18:03 Toxic Granulation Not Reportable 09/15/19 18:03 Toxic Vacuolation Not Reportable 09/15/19 18:03 Dohle Bodies Not Reportable 09/15/19 18:03 Pelger-Huet Anomaly Not Reportable 09/15/19 18:03 Bipin Rods Not Reportable 09/15/19 18:03 Platelet Estimate Consistent w auto 09/15/19 18:03 Clumped Platelets Not Reportable 09/15/19 18:03 Plt Clumps, EDTA Not Reportable 09/15/19 18:03 Large Platelets Not Reportable 09/15/19 18:03 Giant Platelets Not Reportable 09/15/19 18:03 Platelet Satelliting Not Reportable 09/15/19 18:03 Plt Morphology Comment Not Reportable 09/15/19 18:03 RBC Morphology Not Reportable 09/15/19 18:03 Dimorphic RBCs Not Reportable 09/15/19 18:03 Polychromasia Not Reportable 09/15/19 18:03 Hypochromasia 2+ 09/15/19 18:03 Poikilocytosis 1+ 09/15/19 18:03 Anisocytosis 2+ 09/15/19 18:03 Microcytosis 1+ 09/15/19 18:03 Macrocytosis 1+ 09/15/19 18:03 Spherocytes Not Reportable 09/15/19 18:03 Pappenheimer Bodies Not Reportable 09/15/19 18:03 Sickle Cells Not Reportable 09/15/19 18:03 Target Cells Not Reportable 09/15/19 18:03 Tear Drop Cells Rare 09/15/19 18:03 Ovalocytes Not Reportable 09/15/19 18:03 Stomatocytes Few 09/15/19 18:03 Helmet Cells Not Reportable 09/15/19 18:03 [place] Bodies Not Reportable 09/15/19 18:03 [place] Rings Not Reportable 09/15/19 18:03 [employer] Cells Not Reportable 09/15/19 18:03 Bite Cells Not Reportable 09/15/19 18:03 Crenated Cell Not Reportable 09/15/19 18:03 Elliptocytes Few 09/15/19 18:03 Acanthocytes (Spur) Not Reportable 09/15/19 18:03 Rouleaux Not Reportable 09/15/19 18:03 Hemoglobin C Crystals Not Reportable 09/15/19 18:03 Schistocytes Not Reportable 09/15/19 18:03 Malaria parasites Not Reportable 09/15/19 18:03 Roverto Bodies Not Reportable 09/15/19 18:03 Hem Pathologist Commnt No 09/15/19 18:03 Sodium 144 mmol/L (137-145) 09/15/19 18:03 Potassium 3.6 mmol/L (3.6-5.0) 09/15/19 18:03 Chloride 103.9 mmol/L (98-107) 09/15/19 18:03 Carbon Dioxide 25 mmol/L (22-30) 09/15/19 18:03 Anion Gap 19 mmol/L 09/15/19 18:03 BUN 30 mg/dL (7-17) H 09/15/19 18:03 Creatinine 1.6 mg/dL (0.7-1.2) H 09/15/19 18:03 Estimated GFR 39 ml/min 09/15/19 18:03 BUN/Creatinine Ratio 19 % 09/15/19 18:03 Glucose 100 mg/dL (65-100) 09/15/19 18:03 Calcium 9.8 mg/dL (8.4-10.2) 09/15/19 18:03 Total Bilirubin 0.30 mg/dL (0.1-1.2) 09/15/19 18:03 AST 46 units/L (5-40) H 09/15/19 18:03 ALT 26 units/L (7-56) 09/15/19 18:03 Alkaline Phosphatase 91 units/L (35-129) 09/15/19 18:03 Total Protein 7.3 g/dL (6.3-8.2) 09/15/19 18:03 Albumin 3.7 g/dL (3.9-5) L 09/15/19 18:03 Albumin/Globulin Ratio 1.0 % 09/15/19 18:03 Blood Type AB POSITIVE 09/15/19 22:00 Antibody Screen Negative 09/15/19 22:00 Crossmatch See Detail 09/15/19 22:00 Active Medications - Current Medications Current Medications: Generic Name Dose Route Start Last Admin Trade Name Freq PRN Reason Stop Dose Admin Acetaminophen 650 mg 09/15/19 22:18 Tylenol PO Q4H PRN Pain MILD(1-3)/Fever >100.5/STUBBS Magnesium Hydroxide 30 ml 09/15/19 22:18 Milk Of Magnesia PO Q4H PRN Constipation Ondansetron HCl 4 mg 09/15/19 22:18 Zofran IV Q8H PRN Nausea And Vomiting Sodium Chloride 10 ml 09/16/19 10:00 Sodium Chloride Flush Syringe 10 Ml IV BID JESSICA Sodium Chloride 10 ml 09/15/19 22:18 Sodium Chloride Flush Syringe 10 Ml IV PRN PRN LINE FLUSH
[2019-09-16] MEDS ORDERED: SODIUM CHLORIDE 0.9% 500 ML 500 ML IV SCH (09:00)
[2019-09-16 09:59] LABS: Bilirubin,Urine NEG (Negative); Blood,Urine NEG (Negative); Color,Urine Yellow (Yellow); Mucus,Urine FEW /HPF; Protein,Urine <15 mg/dL mg/dL (Negative); RBC,Urine < 1.0 /HPF (0.0-6.0); Urobilinogen,Urine < 2.0 mg/dL (<2.0)
[2019-09-16] MEDS: TBO-FILGRASTIM 480 MCG/0.8 ML SUB-Q SCH (10:59)
[2019-09-16] MEDS: cefTRIAXone/NS 1 GM/50 ML 1 GM/50 ML BAG IV SCH (11:57)
[2019-09-16] MEDS ORDERED: FLU VACC QUAD 2019-20 (3 YR UP)/PF 60 MCG/0.5 ML SYRINGE IM ONE (12:00)
[2019-09-16] MEDS: SODIUM CHLORIDE 0.9% 1000 ML 1,000 ML IV SCH (15:23)
[2019-09-16 16:34] LABS: Hematocrit 25.9 % (30.3-42.9); Hemoglobin 8.5 gm/dl (10.1-14.3); Mean Corpuscular HGB Conc 33 % (30-34); Mean Corpuscular Volume 93 fl (79-97); Red Blood Count 2.79 M/mm3 (3.65-5.03); Red Cell Distribution Width 18.9 % (13.2-15.2)
[2019-09-16 16:45] LABS: Platelet Count 11 K/mm3 (140-440)
[2019-09-16 16:46] LABS: INR 1.04 (0.87-1.13)
[2019-09-16 16:47] LABS: Partial Thromboplastin Time 34.3 Sec. (24.2-36.6)
[2019-09-16 16:56] LABS: BUN/Creatinine Ratio 23; Blood Urea Nitrogen 23 mg/dL (7-17); Calcium 8.4 mg/dL (8.4-10.2); Hemolysis Index 7
[2019-09-16 18:52] LABS: Basophils % (Manual) 0 % (0.0-1.8); Eosinophils % (Manual) 0 % (0.0-4.3); Total Cells Counted 50
[2019-09-16 18:53] LABS: Anisocytosis 1+; Poikilocytosis 1+
[2019-09-16 18:54] LABS: Platelet Estimate Appe
[2019-09-16] MEDS ORDERED: POTASSIUM CHLORIDE 40 MEQ in SODIUM CHLORIDE 0.45% 500 ML IV SCH (20:00)
[2019-09-17 06:06] LABS: Hematocrit 24.5 % (30.3-42.9); Hemoglobin 8.1 gm/dl (10.1-14.3); Mean Corpuscular HGB Conc 33 % (30-34); Mean Corpuscular Volume 93 fl (79-97); Red Blood Count 2.65 M/mm3 (3.65-5.03)
[2019-09-17 06:19] LABS: BUN/Creatinine Ratio 20; Blood Urea Nitrogen 18 mg/dL (7-17); Calcium 8.2 mg/dL (8.4-10.2); Hemolysis Index 5
[2019-09-17] MEDS: SODIUM CHLORIDE 0.9% 1000 ML 1,000 ML IV SCH ×2 (06:39→17:58)
[2019-09-17 06:46] LABS: Platelet Count 34 K/mm3 (140-440)
[2019-09-17 08:27] LABS: Anisocytosis 1+; Basophils % (Manual) 0 % (0.0-1.8); Eosinophils % (Manual) 0 % (0.0-4.3); Ovalocytes Few; Poikilocytosis 1+; Total Cells Counted 50
[2019-09-17 08:28] LABS: Platelet Estimate Appears Decreased
[2019-09-17] MEDS ORDERED: POTASSIUM PHOSPHATE 40 MMOL in SODIUM CHLORIDE 0.9% 500 ML 500 ML IV ONE (08:30)
[2019-09-17] MEDS ORDERED: MAGNESIUM SULFATE 3 GM in SODIUM CHLORIDE 0.9% 100 ML IV ONE (08:30)
[2019-09-17] MEDS: cefTRIAXone/NS 1 GM/50 ML 1 GM/50 ML BAG IV SCH (09:26)
[2019-09-17] MEDS: TBO-FILGRASTIM 480 MCG/0.8 ML SUB-Q SCH (10:02)
--- NOTE | 2019-09-17 13:43 | Progress Note ---
Assessment and Plan Assessment and plan: 64-year-old woman who presents to the hospital with dizziness. Has a known history of non-small cell carcinoma of the lung currently receiving chemotherapy. She has been complaining of dizziness upon standing for the last week or so. 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 Chest x-ray today is a small left pleural effusion. Parenchymal opacity in the central left chest appears similar to previous imaging. There is elevation of the left diaphragm. CT head no acute findings Labs show severe neutropenia and thrombocytopenia, pancytopenia, creatinine is 1.6 which is a touch worse than previous. UTI? few Wbc in urine, given neutropenia, rx w abx, while ucx pending Dizziness/hypotension/dehydration BP meds on hold, IV fluids Pancytopenia Anemia requiring transfusions Improving sp 2 unit PRBC, and 1 unit of platelets, continue Neupogen Hypokalemia, hypomagnesemia, hypophosphatemia Repleted stage IV non-small cell cancer of the lung. Continue outpatient management when improved. Acute on chronic kidney disease stage III Likely due to vasomotor nephropathy, continue IV fluids DVT prophylaxis SCDs given thrombocytopenia and active bleeding. History Interval history: Nosebleeding has resolved Review of systems Constitutional: No fevers, no malaise, no joint pains CVS: No chest pain, no orthopnea, no pedal edema GI: No abdominal pain, no diarrhea, no vomiting, no constipation Respiratory: , no wheezing, no coughing Hospitalist Physical - Physical exam Narrative exam: General.: Appears well, no distress, nontoxic HEENT: Moist mucous membranes, extraocular muscles intact, no lymphadenopathy Neck: supple Cardiac: S1-S2 heard Lungs: clear to auscultation bilaterally Abdomen: soft , nontender, nondistended, bowel sounds positive Extremities: no edema clubbing or cyanosis Skin: no rash or lesions Neurologic: no gross focal deficits Psych: calm, and cooperative - Constitutional Vitals: Temp Pulse Resp BP Pulse Ox 98.7 F 80 18 107/60 100 09/17/19 07:16 09/17/19 10:00 09/17/19 10:00 09/17/19 07:16 09/17/19 10:00 General appearance: Present: no acute distress, well-nourished Results - Labs CBC & Chem 7: 09/17/19 05:25 09/17/19 05:25 Labs: Laboratory Last Values WBC 1.3 K/mm3 (4.5-11.0) L* 09/17/19 05:25 RBC 2.65 M/mm3 (3.65-5.03) L 09/17/19 05:25 Hgb 8.1 gm/dl (10.1-14.3) L 09/17/19 05:25 Hct 24.5 % (30.3-42.9) L 09/17/19 05:25 MCV 93 fl (79-97) 09/17/19 05:25 MCH 31 pg (28-32) 09/17/19 05:25 MCHC 33 % (30-34) 09/17/19 05:25 RDW 19.0 % (13.2-15.2) H 09/17/19 05:25 Plt Count 34 K/mm3 (140-440) L D 09/17/19 05:25 [place] % (Auto) Firesetter 09/17/19 05:25 Add Manual Diff Complete 09/17/19 05:25 Total Counted 50 09/17/19 05:25 Seg Neutrophils % Firesetter 09/15/19 18:03 Seg Neuts % (Manual) 42.0 % (40.0-70.0) 09/17/19 05:25 Band Neutrophils % 0 % 09/17/19 05:25 Lymphocytes % (Manual) 40.0 % (13.4-35.0) H 09/17/19 05:25 Reactive Lymphs % (Man) 0 % 09/17/19 05:25 Monocytes % (Manual) 18.0 % (0.0-7.3) H 09/17/19 05:25 Eosinophils % (Manual) 0 % (0.0-4.3) 09/17/19 05:25 Basophils % (Manual) 0 % (0.0-1.8) 09/17/19 05:25 Metamyelocytes % 0 % 09/17/19 05:25 Myelocytes % 0 % 09/17/19 05:25 Promyelocytes % 0 % 09/17/19 05:25 Blast Cells % 0 % 09/17/19 05:25 Nucleated RBC % Not Reportable 09/17/19 05:25 Seg Neutrophils # Man 0.5 K/mm3 (1.8-7.7) L 09/17/19 05:25 Band Neutrophils # 0.0 K/mm3 09/17/19 05:25 Lymphocytes # (Manual) 0.5 K/mm3 (1.2-5.4) L 09/17/19 05:25 Abs React Lymphs (Man) 0.0 K/mm3 09/17/19 05:25 Monocytes # (Manual) 0.2 K/mm3 (0.0-0.8) 09/17/19 05:25 Eosinophils # (Manual) 0.0 K/mm3 (0.0-0.4) 09/17/19 05:25 Basophils # (Manual) 0.0 K/mm3 (0.0-0.1) 09/17/19 05:25 Metamyelocytes # 0.0 K/mm3 09/17/19 05:25 Myelocytes # 0.0 K/mm3 09/17/19 05:25 Promyelocytes # 0.0 K/mm3 09/17/19 05:25 Blast Cells # 0.0 K/mm3 09/17/19 05:25 WBC Morphology Not Reportable 09/17/19 05:25 Hypersegmented Neuts Not Reportable 09/17/19 05:25 Hyposegmented Neuts Not Reportable 09/17/19 05:25 Hypogranular Neuts Not Reportable 09/17/19 05:25 Smudge Cells Not Reportable 09/17/19 05:25 Toxic Granulation Not Reportable 09/17/19 05:25 Toxic Vacuolation Not Reportable 09/17/19 05:25 Dohle Bodies Not Reportable 09/17/19 05:25 Pelger-Huet Anomaly Not Reportable 09/17/19 05:25 Bipin Rods Not Reportable 09/17/19 05:25 Platelet Estimate Appears decreased 09/17/19 05:25 Clumped Platelets Not Reportable 09/17/19 05:25 Plt Clumps, EDTA Not Reportable 09/17/19 05:25 Large Platelets Not Reportable 09/17/19 05:25 Giant Platelets Not Reportable 09/17/19 05:25 Platelet Satelliting Not Reportable 09/17/19 05:25 Plt Morphology Comment Not Reportable 09/17/19 05:25 RBC Morphology Not Reportable 09/17/19 05:25 Dimorphic RBCs Not Reportable 09/17/19 05:25 Polychromasia Not Reportable 09/17/19 05:25 Hypochromasia Not Reportable 09/17/19 05:25 Poikilocytosis 1+ 09/17/19 05:25 Anisocytosis 1+ 09/17/19 05:25 Microcytosis Not Reportable 09/17/19 05:25 Macrocytosis Not Reportable 09/17/19 05:25 Spherocytes Not Reportable 09/17/19 05:25 Pappenheimer Bodies Not Reportable 09/17/19 05:25 Sickle Cells Not Reportable 09/17/19 05:25 Target Cells Not Reportable 09/17/19 05:25 Tear Drop Cells Not Reportable 09/17/19 05:25 Ovalocytes Few 09/17/19 05:25 Stomatocytes Few 09/15/19 18:03 Helmet Cells Not Reportable 09/17/19 05:25 Bishop-[place] Bodies Not Reportable 09/17/19 05:25 [place] Rings Not Reportable 09/17/19 05:25 [place] Cells Not Reportable 09/17/19 05:25 Bite Cells Not Reportable 09/17/19 05:25 Crenated Cell Not Reportable 09/17/19 05:25 Elliptocytes Few 09/17/19 05:25 Acanthocytes (Spur) Not Reportable 09/17/19 05:25 Rouleaux Not Reportable 09/17/19 05:25 Hemoglobin C Crystals Not Reportable 09/17/19 05:25 Schistocytes Not Reportable 09/17/19 05:25 Malaria parasites Not Reportable 09/17/19 05:25 Roverto Bodies Not Reportable 09/17/19 05:25 Hem Pathologist Commnt No 09/17/19 05:25 PT 13.7 Sec. (12.2-14.9) 09/16/19 16:30 INR 1.04 (0.87-1.13) 09/16/19 16:30 APTT 34.3 Sec. (24.2-36.6) 09/16/19 16:30 Sodium 144 mmol/L (137-145) 09/17/19 05:25 Potassium 3.3 mmol/L (3.6-5.0) L 09/17/19 05:25 Chloride 109.3 mmol/L (98-107) H 09/17/19 05:25 Carbon Dioxide 23 mmol/L (22-30) 09/17/19 05:25 Anion Gap 15 mmol/L 09/17/19 05:25 BUN 18 mg/dL (7-17) H 09/17/19 05:25 Creatinine 0.9 mg/dL (0.7-1.2) 09/17/19 05:25 Estimated GFR > 60 ml/min 09/17/19 05:25 BUN/Creatinine Ratio 20 % 09/17/19 05:25 Glucose 91 mg/dL (65-100) 09/17/19 05:25 Calcium 8.2 mg/dL (8.4-10.2) L 09/17/19 05:25 Phosphorus 2.00 mg/dL (2.5-4.5) L 09/17/19 05:25 Magnesium 1.60 mg/dL (1.7-2.3) L 09/17/19 05:25 Total Bilirubin 0.30 mg/dL (0.1-1.2) 09/15/19 18:03 AST 46 units/L (5-40) H 09/15/19 18:03 ALT 26 units/L (7-56) 09/15/19 18:03 Alkaline Phosphatase 91 units/L (35-129) 09/15/19 18:03 Total Protein 7.3 g/dL (6.3-8.2) 09/15/19 18:03 Albumin 3.7 g/dL (3.9-5) L 09/15/19 18:03 Albumin/Globulin Ratio 1.0 % 09/15/19 18:03 Urine Color Yellow (Yellow) 09/15/19 Unknown Urine Turbidity Slightly-cloudy (Clear) 09/15/19 Unknown Urine pH 5.0 (5.0-7.0) 09/15/19 Unknown Ur Specific [place] 1.014 (1.003-1.030) 09/15/19 Unknown Urine Protein <15 mg/dl mg/dL (Negative) 09/15/19 Unknown Urine Glucose (UA) Neg mg/dL (Negative) 09/15/19 Unknown Urine Ketones Neg mg/dL (Negative) 09/15/19 Unknown Urine Blood Neg (Negative) 09/15/19 Unknown Urine Nitrite Neg (Negative) 09/15/19 Unknown Urine Bilirubin Neg (Negative) 09/15/19 Unknown Urine Urobilinogen < 2.0 mg/dL (<2.0) 09/15/19 Unknown Ur Leukocyte Esterase Neg (Negative) 09/15/19 Unknown Urine WBC (Auto) 9.0 /HPF (0.0-6.0) H 09/15/19 Unknown Urine RBC (Auto) < 1.0 /HPF (0.0-6.0) 09/15/19 Unknown U Epithel Cells (Auto) < 1.0 /HPF (0-13.0) 09/15/19 Unknown Urine Mucus Few /HPF 09/15/19 Unknown Blood Type AB POSITIVE 09/15/19 22:00 Antibody Screen Negative 09/15/19 22:00 Crossmatch See Detail 09/15/19 22:00 Active Medications - Current Medications Current Medications: Generic Name Dose Route Start Last Admin Trade Name Freq PRN Reason Stop Dose Admin Acetaminophen 650 mg 09/15/19 22:18 Tylenol PO Q4H PRN Pain MILD(1-3)/Fever >100.5/STUBBS Sodium Chloride 1,000 mls @ 125 mls/hr 09/16/19 09:00 09/17/19 06:39 Nacl 0.9% 1000 Ml IV 125 mls/hr DIRECT JESSICA Administration Ceftriaxone Sodium 1 gm in 50 mls @ 100 mls/hr 09/16/19 12:00 09/17/19 09:26 Rocephin/Ns 1 Gm/50 Ml IV 100 mls/hr Q24HR JESSICA Administration Protocol Potassium Phosphate 40 mmol/ 513.3333 mls @ 83 mls/hr 09/17/19 08:30 09/17/19 08:28 Sodium Chloride IV 09/17/19 14:41 83 mls/hr ONCE ONE Administration Magnesium Hydroxide 30 ml 09/15/19 22:18 Milk Of Magnesia PO Q4H PRN Constipation Ondansetron HCl 4 mg 09/15/19 22:18 Zofran IV Q8H PRN Nausea And Vomiting Sodium Chloride 10 ml 09/16/19 10:00 09/17/19 09:27 Sodium Chloride Flush Syringe 10 Ml IV 10 ml BID JESSICA Administration Sodium Chloride 10 ml 09/15/19 22:18 Sodium Chloride Flush Syringe 10 Ml IV PRN PRN LINE FLUSH Tbo-Filgrastim 480 mcg 09/16/19 10:00 09/17/19 10:02 Granix SUB-Q 480 mcg DAILY JESSICA Administration
[2019-09-17] MEDS: ACETAMINOPHEN 325 MG TAB PO PRN (22:57)
[2019-09-18] MEDS: SODIUM CHLORIDE 0.9% 1000 ML 1,000 ML IV SCH ×2 (02:10→10:08)
[2019-09-18 06:15] LABS: Hematocrit 22.5 % (30.3-42.9); Hemoglobin 7.4 gm/dl (10.1-14.3); Mean Corpuscular HGB Conc 33 % (30-34); Mean Corpuscular Volume 92 fl (79-97); Red Blood Count 2.45 M/mm3 (3.65-5.03); Red Cell Distribution Width 18.5 % (13.2-15.2)
[2019-09-18 06:22] LABS: Platelet Count 20 K/mm3 (140-440)
[2019-09-18 06:38] LABS: BUN/Creatinine Ratio 12; Blood Urea Nitrogen 11 mg/dL (7-17); Calcium 7.7 mg/dL (8.4-10.2); Hemolysis Index 1
[2019-09-18 07:29] LABS: Band Neutrophils # (Manual) 0.1 K/mm3; Basophils % (Manual) 0 % (0.0-1.8); Eosinophils % (Manual) 0 % (0.0-4.3); Total Cells Counted 100
[2019-09-18 07:30] LABS: Anisocytosis 1+; Platelet Estimate Consistent w Auto; Poikilocytosis Few
[2019-09-18] MEDS: cefTRIAXone/NS 1 GM/50 ML 1 GM/50 ML BAG IV SCH (10:09)
[2019-09-18] MEDS: TBO-FILGRASTIM 480 MCG/0.8 ML SUB-Q SCH (10:13)
[2019-09-18] MEDS: ACETAMINOPHEN 325 MG TAB PO PRN (12:46)
--- NOTE | 2019-09-18 13:04 | Discharge Summary ---
Providers - Providers Date of Admission: 09/15/19 21:39 Attending physician: CELENA RUBIN MD 09/16/19 10:52 Physical Therapy Evaluation and Treat [CONS] Routine Comment: Reason For Exam: weakness 09/16/19 13:53 Physical Therapy Evaluation and Treat [CONS] Routine Comment: Reason For Exam: ataxia Primary care physician: NARESH LYNNE Hospitalization Condition: Fair Hospital course: 64-year-old woman who presents to the hospital with dizziness. Has a known history of non-small cell carcinoma of the lung currently receiving chemotherapy. She has been complaining of dizziness upon standing for the last week or so. 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 Chest x-ray today is a small left pleural effusion. Parenchymal opacity in the central left chest appears similar to previous imaging. There is elevation of the left diaphragm. CT head no acute findings Labs show severe neutropenia and thrombocytopenia, pancytopenia, creatinine is 1.6 which is a touch worse than previous. UTI ruled out, U cx neg Dizziness/hypotension/dehydration BP meds on hold, sp IV fluids, improved Pancytopenia Anemia requiring transfusions Improving sp 2 unit PRBC, and 1 unit of platelets, Neupogen, improved Hypokalemia, hypomagnesemia, hypophosphatemia Repleted stage IV non-small cell cancer of the lung. Continue outpatient management when improved. Acute on chronic kidney disease stage III due to vasomotor nephropathy, resolved with IV fluids DVT prophylaxis SCDs given thrombocytopenia . Preventative health counseling performed for 17 minutes Disposition: - TO HOME OR SELFCARE Time spent for discharge: 33mins Core Measure Documentation - Palliative Care Palliative Care/ Comfort Measures: Not Applicable - Core Measures Any of the following diagnoses?: none Exam - Constitutional Vitals: Temp Pulse Resp BP Pulse Ox 98.6 F 82 18 114/70 100 09/18/19 07:24 09/18/19 10:00 09/18/19 12:46 09/18/19 07:24 09/18/19 10:00 General appearance: Present: no acute distress, well-nourished - EENT Eyes: Present: PERRL ENT: hearing intact, clear oral mucosa - Neck Neck: Present: supple, normal ROM - Respiratory Respiratory effort: normal Respiratory: bilateral: CTA - Cardiovascular Heart Sounds: Present: S1 & S2. Absent: rub, click - Extremities Extremities: pulses symmetrical, No edema Peripheral Pulses: within normal limits - Abdominal General gastrointestinal: Present: soft, non-tender, non-distended, normal bowel sounds Female genitourinary: Present: normal - Integumentary Integumentary: Present: clear, warm, dry - Musculoskeletal Musculoskeletal: gait normal, strength equal bilaterally - Psychiatric Psychiatric: appropriate mood/affect, intact judgment & insight - Neurologic Neurologic: CNII-XII intact, moves all extremities Plan Follow up with: ORLANDO ISLAS MD [Staff Physician] - 7 Days DEL VALLE BERENICE VILLA MD [Referring] - 3-5 Days
[2019-09-18 14:26] VITALS: BP 113/57
== END 2019-09-18 15:55 | disposition home or self-care (01) | DRG 808 ==
LOC: ED 16:07 → 2B-ACE 21:39
PROVIDERS: ADMIT Internal Medicine Geriatric Medicine; ATTEND Internal Medicine
PROC: 30233R1 Transfusion of Nonautologous Platelets into Peripheral Vein, Percutaneous Approach (ICD-10-PCS; principal; 2019-09-16)
PROC: 30233N1 Transfusion of Nonautologous Red Blood Cells into Peripheral Vein, Percutaneous Approach (ICD-10-PCS; 2019-09-16)
DX: D61.818 Other pancytopenia (principal); N17.0 Acute kidney failure with tubular necrosis; C34.90 Malignant neoplasm of unspecified part of unspecified bronchus or lung; I95.9 Hypotension, unspecified; D64.9 Anemia, unspecified; D69.6 Thrombocytopenia, unspecified; E86.0 Dehydration; E87.6 Hypokalemia; E83.42 Hypomagnesemia; E83.39 Other disorders of phosphorus metabolism; N18.3 Chronic kidney disease, stage 3 (moderate); Z71.89 Other specified counseling; Z98.51 Tubal ligation status; Z79.899 Other long term (current) drug therapy
CPT/HCPCS: 36415; 70450; 71045; 80048; 80053; 81001; 83735; 84100; 85007; 85025; 85610; 85730; 86850; 86900; 86901; 86920; 87086; 90686; 93005; 93010; G0378; J0696; J1447; J3475; J3480; J7030; J7040; P9016; P9035